=== PATIENT | male | born 1970 | race Caucasian/White ===

== ENCOUNTER 2022-10-27 15:26 | Emergency (ER) | payer MEDICAID ==
[~2022-10-27] VITALS: Ht 162.6 cm; Wt 99.8 kg
--- NOTE | 2022-10-27 17:05 | NUR ---
C/O DIZZINESS EVERY MORNING WHEN GETTING UP AND YELLOWISH LIQUID SECRETION IN THE EAR
--- NOTE | 2022-10-27 17:10 | NUR ---
WAITING FOR MD BURK
--- NOTE | 2022-10-27 17:25 | NUR ---
RAC #20, BLOOD DRAWN AND COLLECTED BY PHLEB AT BEDSIDE
--- NOTE | 2022-10-27 17:28 | NUR ---
MUSEUM DIRECTOR AT BEDSIDE FOR XRAY
[2022-10-27] MEDS ORDERED: IV NS 0.9% 1,000 ML BAG IV ONE (17:30)
[2022-10-27 17:34] LABS: BASOPHILS # (AUTO) 0.1 K/uL (0.0-0.2); BASOPHILS % (AUTO) 0.5 % (0.0-2.0); HEMATOCRIT 50 % (39-51); HEMOGLOBIN 16.3 g/dL (13.5-17.5); LYMPHOCYTES # (AUTO) 3.4 K/uL (0.8-4.8); LYMPHOCYTES % (AUTO) 32.7 % (20.0-44.0); MEAN CORPUSCULAR HGB CONC 33 g/dl (31.0-36.0); MEAN CORPUSCULAR VOLUME 90 fL (80-96); MONOCYTES # (AUTO) 0.8 K/uL (0.1-1.30); MONOCYTES % (AUTO) 8.1 % (2.0-12.0); NEUTROPHILS # (AUTO) 5.8 K/uL (1.8-8.9); NEUTROPHILS % (AUTO) 56.7 % (43.0-81.0); PLATELET COUNT (AUTO) 262 K/uL (150-450); RED BLOOD CELL COUNT(AUTO) 5.49 MIL/uL (4.5-6.0); WHITE BLOOD COUNT (AUTO) 10.3 K/uL (4.3-11.0)
[2022-10-27 17:50] LABS: CALCIUM, SERUM 8.7 mg/dL (8.5-10.1); CARBON DIOXIDE 28 mmol/L (21-32); CHLORIDE 101 mmol/L (98-107); GLUCOSE 149 mg/dL (74-106); POTASSIUM 3.7 mmol/L (3.5-5.1); SODIUM SERUM 136 mmol/L (136-145); UREA NITROGEN, BLOOD 21 mg/dL (7-18)
[2022-10-27 18:06] LABS: ALANINE AMINOTRANSFERASE 98 U/L (12-78); ALBUMIN 4.1 g/dL (3.4-5.0); ALKALINE PHOSPHATASE 90 U/L (46-116); ASPARTATE AMINOTRANSFERASE 40 U/L (15-37); BILIRUBIN,DIRECT 0.1 mg/dL (0.0-0.2); BILIRUBIN,TOTAL 0.4 mg/dL (0.2-1.0)
--- NOTE | 2022-10-27 19:00 | NUR ---
AT BEDSIDE FOR EVAL
[2022-10-27 19:19] LABS: BILIRUBIN,URINE NEGATIVE (NEGATIVE); COLOR,URINE YELLOW (YELLOW); LEUKOCYTE ESTERASE ,URINE NEGATIVE (NEGATIVE); NITRITE, URINE NEGATIVE (NEGATIVE); PH,URINE 5.5 (5.0-8.0); PROTEIN,URINE NEGATIVE (NEGATIVE); UGLUCOSE NEGATIVE (NEGATIVE); UROBILINOGEN,URINE 0.2 EU/dL (0.2)
[2022-10-27] MEDS ORDERED: MECL-159 PO (19:22)
[2022-10-27 19:32] VITALS: BP 115/84
--- NOTE | 2022-10-27 19:32 | NUR ---
Patient discharged to home in stable condition. Written and verbal after care instructions given. Patient verbalizes understanding of instruction.
== END 2022-10-27 19:33 | disposition home or self-care (01) ==
LOC: ER 15:26
DX: R42 Dizziness and giddiness (principal); F17.200 Nicotine dependence, unspecified, uncomplicated
CPT/HCPCS: 99285; 71045; 93005; 85025; 80048; 80076; 84703; 81003; 36415; 84484; J7030